=== PATIENT | male | born 1950 | race Caucasian/White ===

== ENCOUNTER 2016-12-07 18:27 | Inpatient (IN) | payer MEDICARE, OTHER ==
[~2016-12-07] VITALS: Ht 177.8 cm; Wt 98.4 kg
[2016-12-07] MEDS ORDERED: ASPIRIN 81 MG TABLET CHEW PO ONE (19:00)
[2016-12-07] MEDS ORDERED: SODIUM CHLORIDE 0.9% 1,000ML IVBOLUS ONE ×2 (19:00→20:00)
[2016-12-07] MEDS ORDERED: SODIUM CHLORIDE FLUSH 10ML SYR IVF ONE (19:00)
[2016-12-07] MEDS ORDERED: ASPIRIN 81 MG TABLET CHEW ONE (19:11)
[2016-12-07] MEDS ORDERED: ADAL20KI INJ (19:21)
[2016-12-07] MEDS ORDERED: METH2.5T PO (19:21)
[2016-12-07] MEDS ORDERED: LOSA100T6 PO (19:21)
[2016-12-07] MEDS ORDERED: FOLI20CA PO (19:21)
[2016-12-07] MEDS ORDERED: ESOM20CA PO (19:21)
[2016-12-07] MEDS ORDERED: PRED10TA PO (19:21)
[2016-12-07] MEDS ORDERED: ROSU10TA PO (19:21)
[2016-12-07] MEDS ORDERED: ASPI-496 PO (19:21)
[2016-12-07 19:25] LABS: BLOOD UREA NITROGEN 14 mg/dL (7-18)
[2016-12-07] MEDS ORDERED: ACETAMINOPHEN 325 MG TABLET ONE (19:28)
[2016-12-07 19:29] LABS: HEMOGLOBIN 11.8 g/dL (13.7-18.0); IS PT STATUS REG ER OR PRE ER? YES; WHITE BLOOD COUNT 10.6 x10^3/uL (3.4-10)
[2016-12-07] MEDS ORDERED: SODIUM CHLORIDE 0.9% 1,000 ML IV ONE (19:49)
[2016-12-07] MEDS ORDERED: CEFTRIAXONE PMX 1GM/50ML 50 ML ONE (19:55)
[2016-12-07] MEDS ORDERED: ACETAMINOPHEN 325 MG TABLET PO ONE ×2 (20:00)
[2016-12-07] MEDS ORDERED: CEFTRIAXONE PMX 1GM/50ML 50 ML IVPB ONE (20:00)
[2016-12-07] MEDS ORDERED: ONDANSETRON 2MG/ML, 2ML IVPush PRN ×2 (20:00→21:00)
[2016-12-07] MEDS ORDERED: AZITHROMYCIN 500 MG in SODIUM CHLORIDE 0.9% 250 ML IV ONE (20:00)
[2016-12-07] MEDS ORDERED: BISACODYL 10 MG SUPP PR PRN (21:00)
[2016-12-07] MEDS ORDERED: POLYETHYLENE GLYCOL 17 GM PACKET PO PRN (21:00)
[2016-12-07] MEDS ORDERED: HYDROcodone/APAP 5/325 TABLET PO PRN (21:00)
[2016-12-07] MEDS ORDERED: ZOLPIDEM 5MG TABLET PO PRN (21:00)
[2016-12-07] MEDS: CEFTRIAXONE PMX 1GM/50ML 50 ML IV SCH (21:00)
[2016-12-07] MEDS ORDERED: PROMETHAZINE 25 MG/ML, 1ML IM PRN (21:00)
[2016-12-07] MEDS ORDERED: GUAIFENESIN/DM 200-20MG, 10ML UDC PO PRN (21:00)
[2016-12-07] MEDS ORDERED: DOCUSATE 100 MG CAPSULE PO PRN (21:00)
[2016-12-07] MEDS ORDERED: morphine SULFATE 10 MG/ML, 1ML IVPush PRN (21:00)
[2016-12-07 21:27] VITALS: BP 129/78
[2016-12-07] MEDS: ENOXAPARIN 40 MG/0.4 ML SQ SCH (22:43)
[2016-12-07] MEDS: ATORVASTATIN 20 MG TABLET PO SCH (22:43)
[2016-12-07] MEDS: SODIUM CHLORIDE 0.9% 1,000 ML IV SCH (22:43)
[2016-12-07] MEDS: AZITHROMYCIN 500 MG in SODIUM CHLORIDE 0.9% 250 ML IV SCH (22:44)
[2016-12-08 01:31] VITALS: BP 113/56
[2016-12-08] MEDS: ACETAMINOPHEN 325 MG TABLET PO PRN ×2 (01:54→09:06)
[2016-12-08 05:37] LABS: HEMATOCRIT 31.8 % (39.2-51.8); HEMOGLOBIN 10.6 g/dL (13.7-18.0); WHITE BLOOD COUNT 7.2 x10^3/uL (3.4-10)
[2016-12-08 05:38] LABS: BLOOD UREA NITROGEN 15 mg/dL (7-18)
[2016-12-08] MEDS: SODIUM CHLORIDE 0.9% 1,000 ML IV SCH ×3 (06:35→18:46)
[2016-12-08 07:08] VITALS: BP 146/72
[2016-12-08] MEDS ORDERED: FOLIC ACID 1 MG TABLET PO SCH (09:00)
[2016-12-08] MEDS ORDERED: PANTOPRAZOLE 20MG TABLET PO SCH (09:00)
[2016-12-08] MEDS ORDERED: LOSARTAN 50MG TABLET PO SCH (09:00)
[2016-12-08] MEDS ORDERED: ASPIRIN 81 MG TABLET EC PO SCH (09:00)
[2016-12-08] MEDS: CEFTRIAXONE PMX 1GM/50ML 50 ML IV SCH ×2 (09:04→20:49)
[2016-12-08 14:30] VITALS: BP 135/80
[2016-12-08] MEDS: GUAIFENESIN 200 MG TABLET PO SCH ×2 (18:45→20:49)
[2016-12-08 19:38] VITALS: BP 151/78
[2016-12-08] MEDS: ATORVASTATIN 20 MG TABLET PO SCH (20:49)
[2016-12-08] MEDS: ENOXAPARIN 40 MG/0.4 ML SQ SCH (20:50)
[2016-12-08] MEDS: AZITHROMYCIN 500 MG in SODIUM CHLORIDE 0.9% 250 ML IV SCH (21:29)
[2016-12-09 01:51] VITALS: BP 151/89
[2016-12-09] MEDS: SODIUM CHLORIDE 0.9% 1,000 ML IV SCH (03:07)
[2016-12-09] MEDS: GUAIFENESIN 200 MG TABLET PO SCH (05:49)
[2016-12-09 05:50] LABS: HEMOGLOBIN 9.7 g/dL (13.7-18.0)
[2016-12-09 05:58] LABS: BLOOD UREA NITROGEN 13 mg/dL (7-18)
[2016-12-09 08:01] VITALS: BP 163/82
[2016-12-09] MEDS ORDERED: AZIT500T PO (08:55)
[2016-12-09] MEDS ORDERED: CEFD300C37 PO (08:55)
== END 2016-12-09 09:32 | disposition home or self-care (01) | DRG 871 ==
LOC: ED 19:48 → EDIP 19:50 → ED 20:00 → 5SO 21:34
DX: A41.9 Sepsis, unspecified organism (principal); J18.9 Pneumonia, unspecified organism; N17.0 Acute kidney failure with tubular necrosis; E44.0 Moderate protein-calorie malnutrition; E87.1 Hypo-osmolality and hyponatremia; I11.9 Hypertensive heart disease without heart failure; E78.5 Hyperlipidemia, unspecified; F17.210 Nicotine dependence, cigarettes, uncomplicated; K21.9 Gastro-esophageal reflux disease without esophagitis; M06.9 Rheumatoid arthritis, unspecified; D53.9 Nutritional anemia, unspecified; Z68.31 Body mass index [BMI] 31.0-31.9, adult; Z91.030 Bee allergy status; Z79.899 Other long term (current) drug therapy; Z90.49 Acquired absence of other specified parts of digestive tract
CPT/HCPCS: 36415; 71020; 80048; 82040; 83605; 83880; 84145; 84484; 85025; 87040; 87070; 87205; 93005; 96361; 96365; J0456; J0696; J1650; J7030; J7050; J7512